=== PATIENT | male | born 1960 | race Caucasian/White ===

== ENCOUNTER → 2016-07-05 | Outpatient (CLI) | payer OTHER | LOC: GMAB 11:17 | PROVIDERS: ATTEND Family Medicine | DX: E29.9 Testicular dysfunction, unspecified (principal) ==

== ENCOUNTER → 2016-11-02 | Outpatient (CLI) | payer OTHER | END | disposition home or self-care (01) | LOC: GMAB 10:57 | PROVIDERS: ATTEND Family Medicine | DX: R97.20 Elevated prostate specific antigen [PSA] (principal) ==

== ENCOUNTER → 2017-01-04 | Outpatient (CLI) | payer OTHER | LOC: GMAB 10:24 | PROVIDERS: ATTEND Family Medicine | DX: Z00.01 Encounter for general adult medical examination with abnormal findings (principal) ==

== ENCOUNTER → 2018-01-07 | Outpatient (CLI) | payer OTHER | LOC: GMAE 11:10 | PROVIDERS: ATTEND Family Medicine | DX: Z00.01 Encounter for general adult medical examination with abnormal findings (principal) ==

== ENCOUNTER → 2018-04-10 | Outpatient (CLI) | payer OTHER | LOC: GMAE 10:44 | PROVIDERS: ATTEND Family Medicine | DX: E29.9 Testicular dysfunction, unspecified (principal) ==

== ENCOUNTER → 2018-07-19 | Outpatient (CLI) | payer OTHER | LOC: GMAE 10:49 | PROVIDERS: ATTEND Family Medicine | DX: E29.9 Testicular dysfunction, unspecified (principal) ==

== ENCOUNTER 2018-09-09 04:54 | Emergency (ER) | payer OTHER ==
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
[2018-09-09 06:11] VITALS: BP 127/68; TEMP 96.1; O2SAT 95
== END 2018-09-09 06:38 | disposition home or self-care (01) ==
LOC: ER 04:54
DX: E11.649 Type 2 diabetes mellitus with hypoglycemia without coma (principal); Z79.4 Long term (current) use of insulin; Z79.82 Long term (current) use of aspirin; Z79.899 Other long term (current) drug therapy; Z88.0 Allergy status to penicillin

== ENCOUNTER → 2019-02-05 | Outpatient (CLI) | payer OTHER | LOC: GMAE 10:28 | PROVIDERS: ATTEND Family Medicine | DX: Z00.01 Encounter for general adult medical examination with abnormal findings (principal) ==

== ENCOUNTER → 2019-02-28 | Outpatient (CLI) | payer OTHER ==
--- NOTE | 2019-03-01 12:58 | CT ---
Procedure: CT LUNG SCREENING Exam Date: 02/28/2019 Ordering Provider: Kanu Cardenas Clinical Indication: PERSONAL HISTORY OF TOBACCO USE This patient meets eligibility criteria for low-dose CT lung cancer screening. Comparison: CT scan of the abdomen without contrast 06/04/2012. Technique: Using a multislice scanner, sequential helical axial imaging was obtained in the thorax, 2.5 mm thickness, 2.5 mm separation, from the level of the thoracic inlet through the lung bases without IV contrast. A low dose protocol was utilized for BMI less than 30: BMI: 29. CTDI: 1.76 mGy. 120. kVp. 45 mA. 2D sagittal and coronal reconstructed images, 6.0 mm thickness, were obtained. This exam was performed according to our departmental dose optimization program which includes use of automated exposure control, adjustment of the mA and/or kV according to patient size and/or use of iterative reconstruction technique. Nodule measurements under 10 mm are given as mean value of 3 axes diameters. FINDINGS: Lungs and large airways: Bilateral parenchymal blebs in a centrilobular pattern. More upper lung moore. 3.7 mm solid nodule abutting the pleura laterally in the upper lingula on series 2, image 71. Pleural parenchymal scarring in the inferior right middle lobe no abnormal nodules or masses. No focal infiltrates. Pleura and space: Sporadic bilateral focal pleural thickening. Mediastinum and kassy: evaluation limited by low dose technique and lack of IV contrast. Scattered lymph nodes not enlarged. Heart and great vessels: Atherosclerotic calcifications and stents in the coronary arteries. Calcifications also in the aortic arch and one of the brachiocephalic vessels. Chest wall, lower neck, axillae: Evaluation also limited by same factors as described above. Lobulated node in the left axilla measuring 15 x 11 mm with small calcifications. Upper abdomen: Evaluation limited by low-dose technique. No free air or free fluid in the included peritoneal space. Left adrenal mass measuring 2.5 x 2.1 cm with Hounsfield density +3. Similar size and density to the prior study. Osseous structures: Evaluation limited by low dose MIP technique. Spondylosis multiple levels of the thoracic spine. Minimal arthrosis at other levels. No lytic or blastic lesions. IMPRESSION: 1. Minimal centrilobular emphysematous changes more prevalent in the upper lobes. 3.7 mm left upper lobe nodule laterally versus pleural thickening. No abnormal nodules or masses. No focal infiltrates. [facility] Best Practice guidelines: Please see below for Lung RADS category and FOLLOW-UP.* *Lung RADS category CATEGORY 2S- Nodules with a very low likelihood (less than 1%) of becoming a clinically active cancer due to size or lack of growth. Nodules: Perifissural nodule(s) < 10 mm. (526mm3). Solid or part solid nodule(s) less than 6mm (113.1 mm3), new solid nodule less than 4mm (33.5 mm3). Ground glass nodule(s) less than 30mm (25682.2 mm3) or unchanged or slow growing ground glass nodule 30mm or greater. Cat 3 or 4 nodule unchanged for 3 or more months. FOLLOW-UP: Continue annual screening with a Low Dose Chest CT in 12 months for re-evaluation. 2. More likely left adrenal adenoma versus cyst. Stable since prior CT scan. No CT follow-up is recommended. 3. Lung RADS Modifier S - Clinically Significant or Potentially Clinically Significant Findings (non lung cancer). Borderline enlarged left axillary lymph node. Consider ultrasound evaluation if symptomatic. Electronically signed by: Phong Fernandez MD 03/01/2019 12:57 PM CDT
== END ==
LOC: CT 10:27
PROVIDERS: ATTEND Family Medicine
DX: Z87.891 Personal history of nicotine dependence (principal); J43.9 Emphysema, unspecified

== ENCOUNTER → 2020-03-12 | Outpatient (CLI) | payer OTHER | LOC: GMAE 11:13 | PROVIDERS: ATTEND Family Medicine | DX: Z00.00 Encounter for general adult medical examination without abnormal findings (principal); Z79.891 Long term (current) use of opiate analgesic ==